=== PATIENT | female | born 1995 | race Caucasian/White ===

== ENCOUNTER 2019-04-04 07:15 | Emergency (ER) | payer SELFPAY ==
[~2019-04-04] VITALS: Ht 157.5 cm; Wt 72.7 kg
[2019-04-04 09:27] VITALS: BP 118/79
== END 2019-04-04 09:34 | disposition home or self-care (01) ==
LOC: EMS 07:17
DX: R42 Dizziness and giddiness (principal); R11.10 Vomiting, unspecified; F17.210 Nicotine dependence, cigarettes, uncomplicated